=== PATIENT | female | born 1950 | race Caucasian/White ===

== ENCOUNTER 2022-12-14 07:39 | Day surgery (SDC) | payer MEDICARE, BC ==
[~2022-12-14] VITALS: Ht 162.6 cm; Wt 57.7 kg
[~2022-12-14 07:39] MED LIST: ASPI81TA26 PO; BISO5TAB14 PO; CALCTAB52 PO; COQ10; COUM2.5T17 PO; DRIS50003 PO; EYETAB PO; GINK40TA3 PO; GLUC500C5 PO; LISI2.5T76 GT; LISI5TAB11 PO; METF500T13 PO; NS 1,000 ML IV ONE; PERC5TAB12 PO; [UNRECOGNIZED DRUG - OTHER]; [UNRECOGNIZED DRUG - OTHER]; [UNRECOGNIZED DRUG - OTHER]
[2022-12-14] MEDS ORDERED: LIDOCAINE 2% 100MG/5ML SDV (FOR ANES.) As Ordered ONE (09:43)
[2022-12-14] MEDS ORDERED: propofoL 200 MG/20 ML VIAL As Ordered ONE (09:43)
[2022-12-14 10:20] VITALS: BP 123/57
== END 2022-12-14 10:26 | disposition home or self-care (01) ==
LOC: M OPP 07:39
PROVIDERS: ATTEND Internal Medicine Gastroenterology
DX: Z12.11 Encounter for screening for malignant neoplasm of colon (principal); Z80.0 Family history of malignant neoplasm of digestive organs; K63.5 Polyp of colon; Q43.8 Other specified congenital malformations of intestine; K64.8 Other hemorrhoids; I10 Essential (primary) hypertension; E11.9 Type 2 diabetes mellitus without complications; M19.90 Unspecified osteoarthritis, unspecified site; Z96.653 Presence of artificial knee joint, bilateral; Z88.0 Allergy status to penicillin; Z88.8 Allergy status to other drugs, medicaments and biological substances; Z79.84 Long term (current) use of oral hypoglycemic drugs; Z79.899 Other long term (current) drug therapy; Z82.49 Family history of ischemic heart disease and other diseases of the circulatory system; Z83.3 Family history of diabetes mellitus; Z82.3 Family history of stroke